=== PATIENT | male | born 1945 | race Caucasian/White ===

== ENCOUNTER 2018-11-07 16:19 | Emergency (ER) | payer MEDICARE, OTHER ==
[~2018-11-07] VITALS: Ht 175.3 cm; Wt 109.1 kg
[~2018-11-07 16:19] MED LIST: ATOR-2 PO; LISI-642 PO; METO25TA6 PO; WALKERFR; [UNRECOGNIZED DRUG - CODE] PO
--- NOTE | 2018-11-07 16:38 | NUR ---
SPOKE WITH DR GUERRERO HE IS AWARE OF PT. HE STATES HE WILL REVIEW PAPERWORK FROM [facility] AND PUT ORDERS IN IF NEEDED
[2018-11-07] MEDS ORDERED: normal saline 1000ml 1,000 ML IV ONE (17:35)
--- NOTE | 2018-11-07 17:43 | NUR ---
management tech will be here shortly
[2018-11-07] MEDS ORDERED: iohexol 350MG/ML 100ml bottle IV ONE (18:20)
[2018-11-07] MEDS ORDERED: methylPREDNISolone sod succ 125mg/2ml vial IV ONE (19:50)
[2018-11-07] MEDS ORDERED: albuterol 2.5 mg/0.5ml nebule NEB ONE (19:50)
[2018-11-07] MEDS ORDERED: albuterol 2.5 MG/3 ML nebule NEB ONE (19:55)
[2018-11-07] MEDS ORDERED: PRED20TA PO (19:56)
[2018-11-07] MEDS ORDERED: ALBU6.7H INH (19:56)
[2018-11-07 20:38] VITALS: BP 130/81
== END 2018-11-07 20:40 | disposition home or self-care (01) ==
LOC: ER 16:19
DX: J43.8 Other emphysema (principal); J44.1 Chronic obstructive pulmonary disease with (acute) exacerbation; R60.0 Localized edema; E66.9 Obesity, unspecified; I25.10 Atherosclerotic heart disease of native coronary artery without angina pectoris; I10 Essential (primary) hypertension; I25.2 Old myocardial infarction; M19.90 Unspecified osteoarthritis, unspecified site; F17.200 Nicotine dependence, unspecified, uncomplicated; Z79.899 Other long term (current) drug therapy; Z79.01 Long term (current) use of anticoagulants
CPT/HCPCS: 71275; 93971; 94640; 94760; 96374; 99284; J2930; Q9967; J7030; J7611

== ENCOUNTER 2021-04-13 13:13 | Day surgery (SDC) | payer MEDICARE ==
[2021-04-05 16:11] LABS: BASOPHILS # (AUTO) 0.1 X10'3 (0-0.2); BASOPHILS % (AUTO) 0.7 % (0-1); EOSINOPHILS # (AUTO) 0.1 X10'3 (0-0.9); EOSINOPHILS % (AUTO) 0.5 % (0-6); LYMPHOCYTES # (AUTO) 3.5 X10'3 (1.1-4.8); LYMPHOCYTES % (AUTO) 28.9 % (21-51); MEAN CORPUSCULAR HEMOGLOBIN 30.8 PG (27.0-31.0); MEAN CORPUSCULAR HGB CONC 33.6 g/dL (33.0-36.5); MEAN CORPUSCULAR VOLUME 91.5 FL (78-98); MEAN PLATELET VOLUME 9.3 FL (7.4-10.4); MONOCYTES # (AUTO) 0.7 X10'3 (0-0.9); MONOCYTES % (AUTO) 5.8 % (2-12); NEUTROPHILS # (AUTO) 7.7 X10'3 (1.8-7.7); NEUTROPHILS % (AUTO) 64.1 % (42-75); PRE OP HEMATOCRIT 47.1 % (42.0-52.0); PRE OP HEMOGLOBIN 15.8 g/dL (14.0-17.9); PRE OP PLATELET COUNT 231 X10'3 (140-440); RED BLOOD COUNT 5.15 X10'6 (4.70-6.10); RED CELL DISTRIBUTION WIDTH 14.8 % (11.5-14.5)
[2021-04-05 16:14] LABS: PRE OP PROTIME 10.4 SECONDS (9.0-12.0)
[2021-04-05 16:17] LABS: ALBUMIN 3.4 G/DL (3.4-5.0); ALBUMIN/GLOBULIN RATIO 0.9 (1.1-1.5); ALKALINE PHOSPHATASE 81 IU/L (46-116); BLOOD UREA NITROGEN 20 MG/DL (7-18); BUN/CREATININE RATIO 19.8 (5.4-32.0); CALCIUM 9.4 MG/DL (8.5-10.1); CHLORIDE 105 MMOL/L (99-107); CREATININE 1.01 MG/DL (0.60-1.10); PRE OP ALT 28 U/L (30-65); PRE OP ANION GAP 6 (8-16); PRE OP AST 19 U/L (10-37); PRE OP BILIRUB, TOTAL 0.7 MG/DL (0.0-1.0); PRE OP GLUCOSE 107 MG/DL (70-104); PRE OP POTASSIUM 3.9 MMOL/L (3.4-5.1); PRE OP SODIUM 141 MMOL/L (135-145); TOTAL CARBON DIOXIDE 29.7 MMOL/L (24-32); eGFR 72 ML/MIN
[2021-04-13] VITALS (21 sets, daily range): BP systolic 84–149; BP diastolic 42–87
[~2021-04-13] VITALS: Ht 175.3 cm; Wt 121.6 kg
--- NOTE | 2021-04-13 13:08 | NUR ---
Received from OR via , accompanied by Anesthesiologist DR TENA and report given by Anesthesiolgist. AWAKENS TO VOICE. VITALS STABLE.. DRESSING DI. MARK PAIN. SENSATION AT THE HIPS. ROME WITH CLEAR URINE.
[~2021-04-13 13:13] MED LIST changes: +ALB0.5UD IH; -ATOR-2 PO; +BUPIVAcaine/PF 7.5mg/ml (0.75%) 10ml vial ONE; +DOCUMENT DATE & TIME OF BETA-BLOCKER PO ONE; +FURO-149 PO; +LIDOcaine 2% (20mg/ml) 5ml vial ONE; +LOP25T PO; -METO25TA6 PO; +MIDAZolam 1mg/ml 10ml vial ONE; +POTA10TA10 PO; +ROPIVAcaine 0.5% (5mg/ml) 30ml vial ONE; +ROSU40TA PO; +TERA10CA4 PO; +TIOT18CA3 INH; -WALKERFR; -[UNRECOGNIZED DRUG - CODE] PO; +albuterol 2.5 MG/3 ML nebule NEB ONE; +cefazolin/dext.iso 2gm/100ml IV ONE; +cloNIDine hcl/PF 100mcg/ml inj ONE; +diphenhydrAMINE 50 mg/ml inj IV PRN; +diphenhydrAMINE 50 mg/ml inj ONE; +famotidine 20mg tablet PO ONE; +fentaNYL/PF 50MCG/1 ML 2ML syringe IV PRN; +fentaNYL/PF 50MCG/1 ML 2ML syringe ONE; +hydrALAZINE 20mg/ml inj. IV PRN; +ketorolac trometh. 30mg/ml inj. ONE; +labetalol 20mg/4ml (5mg/ml) syringe IV PRN; +morphine 2 MG/ML inj. syringe IV PRN; +morphine 4 MG/ML inj SYRINge IV PRN; +ondansetron/PF 4mg/2ml inj IV PRN; +phenylephrine 10mg/ml inj. ONE; +propofol inj 20 ML IV ONE; +ringers solution, lacted 1,000 ML IV SCH; +tetracaine 1% (10mg/ml) pres. free inj. ONE; +tranexamic acid inj. 1,000 MG in normal saline 100 ML IV ONE; +vancomycin 1,500 MG in NS 300ml IV soln IV ONE
[2021-04-13] MEDS ORDERED: albuterol 2.5 MG/3 ML nebule NEB PRN (13:15)
[2021-04-13] MEDS ORDERED: ondansetron/PF 4mg/2ml inj IV PRN (13:15)
[2021-04-13] MEDS ORDERED: HYDROcodone/acetaminophen 10/325mg tab PO PRN (13:15)
[2021-04-13] MEDS ORDERED: magnesium hydroxide 30ml (MOM) UD suspension PO PRN (13:15)
[2021-04-13] MEDS ORDERED: HYDROmorphone 1 mg/ml syringe IV PRN (13:15)
[2021-04-13] MEDS ORDERED: diphenhydrAMINE 25mg capsule PO PRN ×2 (13:15)
[2021-04-13] MEDS ORDERED: acetaminophen 325mg tablet PO PRN (13:15)
[2021-04-13] MEDS ORDERED: bisacodyl 10mg suppository rectal RC PRN (13:15)
[2021-04-13] MEDS ORDERED: ipratropium 0.5 MG/2.5ML nebule NEB PRN (13:20)
--- NOTE | 2021-04-13 14:45 | NUR ---
received report from solitario layton from recovery
--- NOTE | 2021-04-13 14:48 | NUR ---
Report called to receiving nurse. Transferred via BED Belongings . Special Issues communicated to receiving nurse. AWAKE AND ORIENTED. VITALS STABLE. DRESSING DI. MARK PAIN. TO ORTHO RM [id number] AT THIS TIME.
[2021-04-13] MEDS: ceFAZolin/D5W- 1GM premix 50 ML IV SCH ×2 (15:51→23:53)
[2021-04-13] MEDS: potassium Cl 20mEq in NS 1,000 ML IV SCH ×2 (16:13→20:06)
[2021-04-13] MEDS: aspirin 325mg tablet PO SCH (17:11)
[2021-04-13] MEDS ORDERED: aspirin 325mg tablet PO SCH (17:30)
--- NOTE | 2021-04-13 18:14 | NUR ---
gave report to solitario peres
--- NOTE | 2021-04-13 18:22 | NUR ---
Patient in room ORTHO 4021. I have received report from SREEDHAR Cruz and had the opportunity to ask questions and assume patient care.
[2021-04-13] MEDS ORDERED: vancomycin/NS 1 GM ADD-VANTAGE 250 ML IV SCH (20:00)
[2021-04-13] MEDS: HYDROcodone/acetaminophen 10/325mg tab PO PRN ×2 (20:06→23:56)
[2021-04-13] MEDS: metoprolol tartrate 12.5mg (1/2 tablet) PO SCH (20:07)
[2021-04-13] MEDS ORDERED: terazosin 5mg capsule PO SCH (21:00)
[2021-04-13] MEDS ORDERED: sennosides 8.6mg tablet PO SCH (21:00)
[2021-04-14] VITALS: BP 125/68
[2021-04-14 02:00] VITALS: BP 94/57
[2021-04-14 04:00] VITALS: BP 110/58
[2021-04-14] MEDS: HYDROcodone/acetaminophen 10/325mg tab PO PRN (05:28)
[2021-04-14 06:00] VITALS: BP 109/55
[2021-04-14 06:06] LABS: BASOPHILS % (AUTO) 0.2 % (0-1); EOSINOPHILS % (AUTO) 0.1 % (0-6); HEMATOCRIT 40.9 % (42.0-52.0); HEMOGLOBIN 13.7 g/dl (14.0-17.9); LYMPHOCYTES # (AUTO) 2.1 X10'3 (1.1-4.8); LYMPHOCYTES % (AUTO) 17.2 % (21-51); MEAN CORPUSCULAR HGB CONC 33.5 g/dL (33.0-36.5); MEAN CORPUSCULAR VOLUME 92.8 FL (78-98); MEAN PLATELET VOLUME 9.3 FL (7.4-10.4); MONOCYTES # (AUTO) 1.3 X10'3 (0-0.9); MONOCYTES % (AUTO) 10.6 % (2-12); NEUTROPHILS # (AUTO) 8.9 X10'3 (1.8-7.7); NEUTROPHILS % (AUTO) 71.9 % (42-75); PLATELET COUNT 203 X10'3 (140-440); RED BLOOD COUNT 4.41 X10'6 (4.70-6.10); RED CELL DISTRIBUTION WIDTH 14.1 % (11.5-14.5); WHITE BLOOD COUNT 12.3 X10'3 (4.5-11.0)
--- NOTE | 2021-04-14 06:25 | NUR ---
Problems reprioritized. Patient report given, questions answered & plan of care reviewed with SREEDHAR Aquino.
[2021-04-14 06:38] LABS: ALANINE AMINOTRANSFERASE 27 U/L (12-78); ALBUMIN 2.8 G/DL (3.4-5.0); ALBUMIN/GLOBULIN RATIO 0.8 (1.1-1.5); ALKALINE PHOSPHATASE 52 IU/L (46-116); ANION GAP 9 (8-16); ASPARTATE AMINO TRANSFERASE 18 U/L (10-37); BILIRUBIN,TOTAL 0.7 MG/DL (0.1-1.0); BLOOD UREA NITROGEN 22 MG/DL (7-18); BUN/CREATININE RATIO 16.1 (5.4-32.0); CALCIUM 8.5 MG/DL (8.5-10.1); CHLORIDE 104 MMOL/L (99-107); CREATININE 1.37 MG/DL (0.60-1.10); GLUCOSE 134 MG/DL (70-104); POTASSIUM 4.1 MMOL/L (3.5-5.1); SODIUM 141 MMOL/L (135-145); TOTAL CARBON DIOXIDE 27.9 MMOL/L (24-32); TOTAL PROTEIN 6.1 G/DL (6.4-8.2); eGFR 51 ML/MIN
--- NOTE | 2021-04-14 06:48 | NUR ---
Patient in room ORTHO 4021. I have received report from Judy ELI and had the opportunity to ask questions and assume patient care.
[2021-04-14] MEDS ORDERED: lisinopril 5mg tablet PO SCH (08:00)
[2021-04-14] MEDS ORDERED: furosemide 40mg tablet PO SCH (08:00)
[2021-04-14] MEDS: aspirin 325mg tablet PO SCH (08:21)
[2021-04-14] MEDS: metoprolol tartrate 12.5mg (1/2 tablet) PO SCH (08:22)
[2021-04-14 10:00] VITALS: BP 128/53
[2021-04-14] MEDS ORDERED: HYDR-3972 PO ×2 (12:11→12:19)
--- NOTE | 2021-04-14 14:49 | NUR ---
Pt discharged from [facility]. Belongings sent with pt. Iv removed no complications. Discharge education reviewed with pt and . Pt discharged to home in stable condition with .
== END 2021-04-14 14:25 | disposition home or self-care (01) ==
LOC: ORTHO 4S 13:13 → ORTHO 13:13
PROVIDERS: ATTEND Orthopaedic Surgery
DX: M17.12 Unilateral primary osteoarthritis, left knee (principal); G89.18 Other acute postprocedural pain; I10 Essential (primary) hypertension; I25.10 Atherosclerotic heart disease of native coronary artery without angina pectoris; I25.2 Old myocardial infarction; J44.9 Chronic obstructive pulmonary disease, unspecified; E66.01 Morbid (severe) obesity due to excess calories; Z68.39 Body mass index [BMI] 39.0-39.9, adult; Z96.651 Presence of right artificial knee joint; Z87.891 Personal history of nicotine dependence; Z98.890 Other specified postprocedural states; Z72.89 Other problems related to lifestyle; Z87.442 Personal history of urinary calculi; Z79.01 Long term (current) use of anticoagulants; Z79.899 Other long term (current) drug therapy
CPT/HCPCS: 27447; 36415; 64447; 71046; 76942; 80053; 82948; 85025; 85610; 85730; 86885; 86900; 86901; 86920; 87081; 94760; 97110; 97116; 97162; 97530; C1713; C1758; C1776; J0690; J0735; J1200; J1885; J2001; J2250; J2370; J2704; J3010; J3370; J3480; J3490; J7040; J7120; Q0163; A6455; A7000; A9272; G0378; J2795